=== PATIENT | male | born 1970 | race Caucasian/White ===

== ENCOUNTER 2017-10-01 10:07 | Inpatient (IN) ==
[2017-10-01 10:48] LABS: Basophils # 0.1 K/mcL (0.0-0.2); Basophils % 1.1 %; Eosinophils # 0.2 K/mcL (0.0-0.6); Eosinophils % 4.4 %; Hematocrit 41.6 % (37.5-50.1); Hemoglobin 13.9 g/dL (12.9-16.9); Lymphocytes # 1.7 K/mcL (0.6-4.6); Lymphocytes % 37.1 %; Mean Corpuscular HGB Conc 33.4 g/dL (31.6-35.5); Mean Corpuscular Hemoglobin 30.8 pg (28.0-33.3); Mean Platelet Volume 10.7 fL (9.4-12.4); Monocytes # 0.7 K/mcL (0.0-1.3); Monocytes % 14.6 %; Neutrophils # 1.9 K/mcL (1.6-8.9); Platelet Count 204 K/mcL (140-400); Red Blood Count 4.52 M/mcL (4.19-5.50); Red Cell Distribution Width 13.4 % (11.5-14.5); Segmented Neutrophils % 42.8 %
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
[2017-10-01 11:05] LABS: Alanine Aminotransferase 84 Units/L (7-52); Albumin 4.1 g/dL (3.5-5.7); Albumin/Globulin Ratio 1.5 (1.1-2.2); Alkaline Phosphatase 61 Units/L (34-104); Aspartate Amino Transferase 50 Units/L (13-39); BUN/Creatinine Ratio 14 (6-26); Bilirubin,Direct 0.2 mg/dL (0.0-0.2); Bilirubin,Indirect 0.6 mg/dL (0.0-1.2); Bilirubin,Total 0.8 mg/dL (0.3-1.0); Blood Urea Nitrogen 11 mg/dL (6-20); Calcium 8.7 mg/dL (8.6-10.3); Carbon Dioxide 26 mEq/L (23-29); Chloride 109 mEq/L (98-107); Globulin 2.7 g/dL (2.4-3.5); Glucose 138 mg/dL (70-105); Osmolality,Calculated 294 (280-300); Potassium 3.1 mEq/L (3.5-5.1); Sodium 141 mEq/L (136-145); Total Protein 6.8 g/dL (6.4-8.9); eGFR For African Americans > 60 (> 60); eGFR For Non-African Americans > 60 (> 60)
[2017-10-01 11:08] LABS: Acetaminophen < 1.0 mcg/mL (10-30); Ethanol < 10 mg/dL (0-10); Salicylate < 5.0 mg/dL (15.0-30.0)
[2017-10-01 11:22] LABS: Thyroid Stimulating Hormone 1.082 mcIU/mL (0.340-5.600)
[2017-10-01 11:47] LABS: Bilirubin,Urine Small (Negative); Blood,Urine Negative (Negative); Clarity,Urine Clear (Clear); Color,Urine Dark Yellow (Yellow); Glucose,Urine (UA) Normal (Normal); Ketones,Urine Negative (Negative); Leukocyte Esterase,Urine Negative (Negative); Nitrite,Urine Negative (Negative); Protein,Urine Trace mg/dL (Neg-Trace); Specific Gravity,Urine > 1.030 (1.010-1.025); Urobilinogen,Urine Normal (Normal)
[2017-10-01 11:48] LABS: Amphetamine Screen,Urine Positive ng/mL (Cutoff=1000); Barbiturate Screen,Urine Negative ng/mL (Cutoff=200); Benzodiazepines Screen,Urine Negative ng/mL (Cutoff=200); Cannabinoid Screen,Urine Negative ng/mL (Cutoff = 50); Cocaine Screen,Urine Negative ng/mL (Cutoff= 300); Opiate Screen,Urine Negative ng/mL (Cutoff=300); Phencyclidine Screen,Urine Negative ng/mL (Cutoff=25)
[2017-10-01 11:52] LABS: Bacteria,Urine None Seen per hpf (None-Few); Hyaline Casts,Urine Few per lpf (None-Few); Squamous Epithelial Cell,Urine Many per lpf (None-Few)
[2017-10-01] MEDS ORDERED: Haloperidol Lactate 5 MG/ML VIAL IM PRN (15:48)
[2017-10-01] MEDS ORDERED: MOM Conc 10 ML UD.LIQ PO PRN (15:48)
[2017-10-01] MEDS ORDERED: Mag Hydrox/Al Hydrox/Simeth 30 ML UDC PO PRN (15:48)
[2017-10-01] MEDS ORDERED: Acetaminophen 325 MG TABLET PO PRN (15:48)
[2017-10-01] MEDS ORDERED: *HR* LORazepam 1 MG TABLET PO PRN (15:48)
[2017-10-01] MEDS ORDERED: *HR* LORazepam 2 MG/ML VIAL IM PRN (15:48)
[2017-10-01] MEDS: traZODone 50 MG TABLET PO PRN (20:07)
[2017-10-01] MEDS: hydrOXYzine pamoate 25 MG CAPSULE PO PRN (20:07)
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
[2017-10-02] MEDS: hydrOXYzine pamoate 25 MG CAPSULE PO PRN ×2 (14:19→20:54)
[2017-10-02] MEDS: traZODone 50 MG TABLET PO PRN (20:54)
--- NOTE | 2017-10-03 14:57 | Psychiatry Progress Note ---
Date of Encounter: 10/03/17 Time of Encounter: 14:50 Subjective Interval history: Patient tells me today "I feel a lot better now". I discussed with him the probability, as I stated the previous day, that he was going to methamphetamine withdrawal. He acknowledged that most likely was true. He denies any current suicidal or homicidal ideation. He denies any auditory or visual hallucinations. I was unable to get in contact with his youth liaison officer to find out about the possibility of getting the patient and to a drug and alcohol counseling program that they may offer through paroles. Patient desires to go to program if possible. He tells me that he is also homeless; has no place to go once he lives here. He denies instability in his mood today. He is feeling calmer and is not depressed. States that he is eating and took a shower which has helped him to feel better. He did sleep last night. PRN's were offered to him including Vistaril which he found helpful. He states that his niece will probably be coming to visit today he will try and get phone numbers for follow- up with potential discharge from the unit soon. Objective: Exam Patient orientation: Yes Person, Yes Time, Yes Place, Yes Circumstance Level of alertness: Alert Patient appearance: Appropriate, Well Groomed Behavior: calm (much less agitated) Psychomotor activity: Normal Eye contact: Maintains Eye Contact Mood description: Euthymic/stable Affect description: congruent with mood Speech pattern: Normal rate, Normal rhythm, Normal tone Speech volume: Normal Thought process: Intact, Logical, Linear, Goal Oriented Thought content: Yes Intact Judgment: Fair Insight: Partial Results - Vital Signs Vital Signs: Temp Pulse Resp BP Pulse Ox 98.4 F 67 18 132/85 94 10/03/17 09:00 10/03/17 09:00 10/03/17 09:00 10/03/17 09:00 10/01/17 14:34 Assessment and Plan (1) 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
[2017-10-03] MEDS: traZODone 50 MG TABLET PO PRN (20:46)
[2017-10-03] MEDS: hydrOXYzine pamoate 25 MG CAPSULE PO PRN (20:46)
[2017-10-04] MEDS: hydrOXYzine pamoate 25 MG CAPSULE PO PRN (13:02)
--- NOTE | 2017-10-04 13:26 | Psychiatry Progress Note ---
Date of Encounter: 10/04/17 Time of Encounter: 12:25 Subjective Interval history: When asked how the patient is feeling today he tells me "alright". He tells me slept 11 hours last evening. He had a family visit last evening that went well. He is not suicidal or homicidal. He is not expressing any auditory or visual hallucinations. He acknowledges that there is no need for any further medications. He feels that he is completely through withdrawal. I spoke to him about his blood pressure being elevated he states he does have a history of hypertension and used to be on lisinopril but stopped taking it. I asked him if you would like to be placed back on the lisinopril to try and lower his blood pressure and he states that he would appreciate that. I explained to him that I was still unable to get in touch with Darshan Marin, his for corporate development officer, but we would try again on Friday when the office was open. He said that he would ask his niece to bring the direct phone number with her tonight when she comes to visit, making it easier to contact him. Patient is on the unit playing cards watching TV and interacting appropriately with staff and other patients. Objective: Exam Patient orientation: Yes Person, Yes Time, Yes Place, Yes Circumstance Level of alertness: Alert Patient appearance: Appropriate, Well Groomed Behavior: calm Psychomotor activity: Normal Eye contact: Maintains Eye Contact Mood description: Euthymic/stable Affect description: congruent with mood Speech pattern: Normal rate, Normal rhythm, Normal tone Speech volume: Normal Thought process: Intact, Linear Thought content: Yes Intact Judgment: Fair Insight: Partial Results - Vital Signs Vital Signs: Temp Pulse Resp BP Pulse Ox 97.4 F L 99 16 148/103 94 10/04/17 09:00 10/04/17 09:00 10/04/17 09:00 10/04/17 09:00 10/01/17 14:34 - Impressions Patients blood pressure has been elevated and consents to restarting his Lisinopril 5 mg po qDay. 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
[2017-10-04] MEDS: traZODone 50 MG TABLET PO PRN (20:41)
--- NOTE | 2017-10-05 13:27 | Psychiatry Progress Note ---
Date of Encounter: 10/05/17 Time of Encounter: 13:05 Subjective Interval history: Patient tells me that he is doing fine. He states his mood is stable. He does not feel depressed or anxious. He denies any suicidal/homicidal ideation. He talks about having a rash on the back of his neck that he thought that he got from medication; but he is not taking any new medications. I asked him if he had washed his clothes since he had been here, and he has. This may be an irritation from the detergent or soap/body hygiene product. The rash is no where else on his body. I looked at the back of his neck. The rash was mildly eczematous, not raised and had mostly resolved as he said. He denies any auditory or visual hallucinations. He denies any bizarre or unusual thoughts. He is sleeping well, eating fine and interacting on the unit without issue. Objective: Exam Patient orientation: Yes Person, Yes Time, Yes Place, Yes Circumstance Level of alertness: Alert Patient appearance: Appropriate, Well Groomed Behavior: calm Psychomotor activity: Normal Eye contact: Maintains Eye Contact Mood description: Euthymic/stable Affect description: congruent with mood Speech pattern: Normal rate, Normal rhythm, Normal tone Speech volume: Normal Thought process: Intact, Linear, Goal Oriented Thought content: Yes Intact Judgment: Fair Insight: Partial Results - Vital Signs Vital Signs: Temp Pulse Resp BP Pulse Ox 97.8 F 63 18 147/98 94 10/05/17 08:40 10/05/17 08:40 10/05/17 08:40 10/05/17 08:40 10/01/17 14:34 Assessment and Plan (1) 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
[2017-10-05] MEDS: traZODone 50 MG TABLET PO PRN (20:08)
[2017-10-05] MEDS: hydrOXYzine pamoate 25 MG CAPSULE PO PRN (20:09)
--- NOTE | 2017-10-06 12:38 | Psychiatry Progress Note ---
Date of Encounter: 10/06/17 Time of Encounter: 10:30 Subjective Interval history: Patient has no complaints today. He is sleeping fine and eating fine. He denies any withdrawal from drugs further. He is not anxious and does not feel depressed. He is no longer hearing voices nor talking to his family members as he said he was on admission. He is future oriented and looking forward to discharging to a homeless long term. He denies any need for medication management. No suicidal or homicidal ideation. No other complaints or requests for needs to be met. Objective: Exam Patient orientation: Yes Person, Yes Time, Yes Place, Yes Circumstance Level of alertness: Alert Behavior: calm, cooperative Psychomotor activity: Normal Eye contact: Maintains Eye Contact Mood description: Euthymic/stable Affect description: congruent with mood Speech pattern: Normal rate, Normal rhythm, Normal tone, Appropriate Speech volume: Normal Thought process: Intact, Logical, Linear, Goal Oriented Thought content: Yes Intact Judgment: Fair Insight: Partial Results - Vital Signs Vital Signs: Temp Pulse Resp BP Pulse Ox 97.9 F 68 17 134/82 94 10/06/17 09:00 10/06/17 09:00 10/06/17 09:00 10/06/17 09:00 10/01/17 14:34 Assessment and Plan (1) 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 Your first appointment will be very thorough and the total appointment time will take between two and three hours. You will be completing paperwork, meeting with a counselor and a nurse, and developing a treatment plan. You will receive follow- up appointments for on-going services , which could include community support, mental health and substance abuse counseling, groups/partial hospitalization programming, medication assisted treatment, and psychiatric medication management. Please bring the following with you to your first visit to the clinic: 1) proof of household income (two consecutive pay stubs, social security award letter, bank statement, statement letter from [facility], child support statement, IRS 1040 or W2 form, or a statement from the person who financially supports you stating they help provide for your basic needs), 2) proof of residency (drivers license, a piece of mail showing your address, a statement from person you live with verifying you live at their address), 3) your social security card, 4) photo ID, and 5) your insurance card (if you have commercial insurance you must call to obtain a prior authorization number before you arrive to your first appointment). If you do not bring these items, you will not be seen.) Keren Astudillo [Advanced Practice Nurse] - 10/14/17 12:00 pm (The above appointment is with Keren Astudillo CNP, at [facility]. This appointment is to establish you with a primary care provider. Your needs for medication and/or Vivitrol will be assessed and treated as indicated as well. Please arrive 15 minutes early to complete paperwork. Please bring your insurance card, photo ID and list of current medications to your first appointment. The above appointment(s) reflects first availability. You may contact the office regularly to check for cancellations that may allow you to be seen sooner.)
[2017-10-06] MEDS: hydrOXYzine pamoate 25 MG CAPSULE PO PRN (20:57)
[2017-10-06] MEDS: traZODone 50 MG TABLET PO PRN (20:57)
[2017-10-07 09:25] VITALS: BP 139/70
--- NOTE | 2017-10-07 10:40 | Discharge Summary ---
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 Status: Acute Medications - Discharge Medications Prescriptions: hydrOXYzine pamoate [HydrOXYzine Pamoate] 25 mg PO TID PRN 30 Days #90 capsule PRN Reason: Anxiety Lisinopril [Zestril] 5 mg PO DAILY 30 Days #30 tablet traZODone [TraZODone] 50 mg PO HS PRN 30 Days #20 tablet PRN Reason: Insomnia Lisinopril [Zestril] 5 mg PO DAILY 30 Days #30 tablet 10/07/17 [Rx] hydrOXYzine pamoate [HydrOXYzine Pamoate] 25 mg PO TID PRN 30 Days #90 capsule 10/07/17 [Rx] traZODone [TraZODone] 50 mg PO HS PRN 30 Days #20 tablet 10/07/17 [Rx] 3 Allergy/AdvReac Type Severity Reaction Status Date / Time codeine Allergy Swelling Verified 10/01/17 10:13 of the Eye hydrocodone Allergy Vomiting Verified 10/01/17 10:13 Penicillins [PCN] Allergy Swelling Verified 10/01/17 10:13 of Lip/Tongue/Throat tramadol [From Ultram] Allergy Swelling Verified 10/01/17 10:13 of the Eye Provider Date of admission: 10/01/17 14:26 Primary care physician: PCP NONE Consults: 10/01/17 16:09 Consult to Pastoral Services [CONS] Routine Comment: Assessment and Plan - Patient/Caregiver Discharge Instructions Activity: resume usual activities as tolerated Diet: regular diet - Follow up Plan Follow up with: [facility] [Outside] - 10/13/17 1:00 pm (The above appointment is with Cari Dallas, counselor at [facility]. Your first appointment will be very thorough and the total appointment time will take between two and three hours. You will be completing paperwork, meeting with a counselor and a nurse, and developing a treatment plan. You will receive follow- up appointments for on-going services , which could include community support, mental health and substance abuse counseling, groups/partial hospitalization programming, medication assisted treatment, and psychiatric medication management. Please bring the following with you to your first visit to the clinic: 1) proof of household income (two consecutive pay stubs, social security award letter, bank statement, statement letter from [facility], child support statement, IRS 1040 or W2 form, or a statement from the person who financially supports you stating they help provide for your basic needs), 2) proof of residency (drivers license, a piece of mail showing your address, a statement from person you live with verifying you live at their address), 3) your social security card, 4) photo ID, and 5) your insurance card (if you have commercial insurance you must call to obtain a prior authorization number before you arrive to your first appointment). If you do not bring these items, you will not be seen.) Keren Astudillo [Advanced Practice Nurse] - 10/14/17 12:00 pm (The above appointment is with Keren Astudillo CNP, at [facility]. This appointment is to establish you with a primary care provider. Your needs for medication and/or Vivitrol will be assessed and treated as indicated as well. Please arrive 15 minutes early to complete paperwork. Please bring your insurance card, photo ID and list of current medications to your first appointment. The above appointment(s) reflects first availability. You may contact the office regularly to check for cancellations that may allow you to be seen sooner.) Functional capacity at discharge: independent ambulation Overall status at discharge: Stable Disposition: Home, Self-Care Hospital Course Hospital course: Mr. La is a 47 year old male who was admitted after having mood alteration and feeling like killing himself. His niece had brought him into the hospital for evaluation. he was recently released from [facility] and was on probation. He initially reported hearing voices of his relatives. I explained to him that his current agitation was most likely withdrawal of his Amphetamine abuse. He admitted to his methaphetamine use and understanding the alteration in his mood. He utilized Vistaril for agitation and anxiety and Trazodone to help increase his ability to relax and sleep at night. He initially was very agitated and confrontation with staff. He spent a great deal of time in his room. He reported after the first few days that his agitation was decreasing with use of the PRN's. he had visitation from his neice and reported feeling better. His svp chief marketing officer never contacted the unit knowing that the patient was here. He attended groups periodically and was out on the unit eating meals regularly after a couple of days. He reported that he was no longer suicidal and that his mood was stabilizing. We talked about his history of drug addiction and his current homeless situation. He wanted to be placed in a homeless assisted and wanted to find a drug rehab that he could enter. He had gone to one before, but was wanting to go to another one thinking he would be more serious this time knowing that he needed to be clean and sober to stay out of senior care. On the last day on the unit, he denied any mood issues. He denied SI/SIB/HI, A/V hallucinations. He was sleeping well and eating, functioning at baseline. Time spent discussing smoking cessation with patient: 3 to 10 minutes Does patient wish to continue nicotine replacement upon disc: No - Time Spent with Patient Total time spent providing and/or coordinating discharge services: 15 min Less than 30 minutes Quality - Multiple Antipsychotics Patient discharged on 2 or more antipsychotic medications: No Procedures - Procedures Procedures: Crisis Stabilization, Supportive Therapy, Group Therapy, Psychoeducational Therapy Mental Status Exam - Mental Status Exam Patient orientation: Yes Person, Yes Time, Yes Place, Yes Circumstance Level of alertness: Alert Patient appearance: Appropriate, Well Groomed, Well-nourished Additional observations: edentulous Behavior: calm Psychomotor activity: Normal Eye contact: Maintains Eye Contact Mood description: Euthymic/stable Affect description: congruent with mood Speech pattern: Normal rate, Normal rhythm, Normal tone, Appropriate Speech Volume: Normal Thought process: Intact, Linear, Goal Oriented Thought Content: Yes Intact Judgment: Fair Insight: Partial
== END 2017-10-07 18:15 | disposition home or self-care (01) | DRG 776 ==
LOC: EMEROO 10:07 → 1ANU 14:26
PROVIDERS: ADMIT Psychiatry & Neurology Psychiatry; ATTEND Psychiatry & Neurology Psychiatry